=== PATIENT | female | born 1995 | race Hispanic/Latino ===

== ENCOUNTER 2019-06-08 13:35 | Outpatient (CLI) | payer MEDICAID ==
[2019-06-08] MEDS ORDERED: MORPHINE 4 MG/1 ML INJ IM ONE (14:23)
[2019-06-08 14:43] VITALS: BP 103/57
== END 2019-06-08 15:50 | disposition home or self-care (01) ==
LOC: TRG 13:35
PROVIDERS: ATTEND Obstetrics & Gynecology
DX: O62.9 Abnormality of forces of labor, unspecified (principal); O48.0 Post-term pregnancy; Z3A.40 40 weeks gestation of pregnancy
CPT/HCPCS: 59025; 96372; J2270

== ENCOUNTER 2019-06-08 18:07 | Inpatient (IN) | payer MEDICAID ==
[2019-06-08 19:32] LABS: Basophils % (Auto) 0.2 % (0.0-1.8); Hematocrit 36.9 % (30.3-42.9); Hemoglobin 12.4 gm/dl (10.1-14.3); Lymphocytes # (Auto) 1.3 K/mm3 (1.2-5.4); Lymphocytes % (Auto) 7.7 % (13.4-35.0); Mean Corpuscular HGB Conc 34 % (30-34); Mean Corpuscular Volume 89 fl (79-97); Monocytes % (Auto) 6.2 % (0.0-7.3); Platelet Count 250 K/mm3 (140-440); Red Blood Count 4.14 M/mm3 (3.65-5.03)
[2019-06-08] MEDS ORDERED: LIDOCAINE (2%) 20 MG/1 ML VIAL 20 ML MDV INFILTRATI ONE (19:35)
[2019-06-08] MEDS ORDERED: ONDANSETRON 4 MG/2 ML INJ IV PRN (19:35)
[2019-06-08] MEDS ORDERED: MINERAL OIL 30 ML ORAL LIQD PO PRN (19:35)
[2019-06-08] MEDS ORDERED: PROMETHAZINE 25 MG TAB PO PRN (19:35)
[2019-06-08] MEDS ORDERED: TERBUTALINE 1 MG/1 ML INJ IVP PRN (19:35)
[2019-06-08] MEDS ORDERED: TERBUTALINE 1 MG/1 ML INJ SUB-Q PRN (19:35)
[2019-06-08] MEDS ORDERED: fentaNYL 100 MCG/2 ML INJ IV PRN (19:35)
[2019-06-08] MEDS ORDERED: ePHEDrine SULFATE 50 MG/1 ML INJ IV PRN ×2 (19:35→21:56)
[2019-06-08] MEDS ORDERED: BUTORPHANOL 2 MG/1 ML INJ IV PRN (19:35)
--- NOTE | 2019-06-08 19:35 | History and Physical Report ---
History of Present Illness Date of examination: 06/08/19 Chief complaint: Labor History of present illness: Pt is a 24yo WF EDC 06/06/19; EGA 40 2/7 weeks presents to L&D complaining of RUC's q 3-4 mins. She received care at [facility] since at 26 weeks and course has been unremarkable. She has a history of HSV - no outbreaks in several months and currently on Valtrex for suppression. records are available and GBS is Negative. Past History Past Medical History: other (Right arm fracture) Past Surgical History: no surgical history HSE ADVISOR History: abnormal PAP smear, herpes (on Valtrex) Social history: no significant social history, single - Obstetrical History Expected Date of Delivery: 06/06/19 Actual Gestation: 40 Week(s) 2 Day(s) : 2 Medications and Allergies Allergies Allergy/AdvReac Type Severity Reaction Status Date / Time metronidazole [From Flagyl] Allergy Rash Verified 06/08/19 14:22 Review of Systems All systems: negative - Vital Signs Vital signs: Vital Signs Temp Resp 97.8 F 16 06/08/19 18:36 06/08/19 18:36 Temp Pulse Resp BP Pulse Ox 97.8 F 16 06/08/19 18:36 06/08/19 18:36 - Physical Exam Breasts: Positive: deferred Abdomen: Positive: normal appearance Genitourinary (Female): Positive: normal external genitalia Vagina: Positive: normal moisture Uterus: Positive: enlarged Extremities: Positive: normal - Obstetrical FHR: category 1 Uterine Contraction Monitor Mode: External Cervical Dilatation: 4 (per nurse) Cervical Effacement Percentage: 90 (per nurse) station: -2 Uterine Contraction Pattern: Regular Uterine Tone Measurement Phase: Contraction Uterine Contraction Intensity: Moderate Results Result Diagrams: 06/08/19 19:00 Abnormal lab results 06/08/19 Range/Units 19:00 WBC 16.7 H (4.5-11.0) K/mm3 Lymph % (Auto) 7.7 L (13.4-35.0) % Carbon # 1.0 H (0.0-0.8) K/mm3 Seg Neutrophils % 85.9 H (40.0-70.0) % Seg Neutrophils # 14.3 H (1.8-7.7) K/mm3 All other labs normal. Assessment and Plan - Patient Problems (1) 40 weeks gestation of Onset Date: 06/08/19 Current Visit: Yes Status: Acute Plan to address problem: A: IUP @ 40 2/7 weeks in labor P: Admit to L&D for expectant vaginal delivery
[2019-06-08] MEDS ORDERED: OXYTOCIN 20 UNIT/1000ML DRIP 20 UNITS/1,000 ML BAG IV SCH (20:00)
[2019-06-08] MEDS ORDERED: OXYTOCIN DRIP 30 UNITS/500 ML BAG IV SCH ×2 (20:00)
[2019-06-08] MEDS: LACTATED RINGERS 1,000 ML IV SCH ×2 (20:07→22:10)
[2019-06-08] MEDS ORDERED: NALOXONE 2 MG/2 ML INJ IV PRN (21:56)
--- NOTE | 2019-06-08 21:59 | Anesthesia Consultation ---
Anesthesia Consult and Med Hx Date of service: 06/08/19 - Airway Anesthetic Teeth Evaluation: Good ROM Head & Neck: Adequate Mental/Hyoid Distance: Adequate Mallampati Class: Class II Intubation Access Assessment: Probably Good - Pulmonary Exam CTA: Yes - Cardiac Exam Cardiac Exam: RRR - Pre-Operative Health Status ASA Pre-Surgery Classification: ASA3 Proposed Anesthetic Plan: Epidural - Pulmonary Hx Smoking: No Hx Asthma: No Hx Respiratory Symptoms: No SOB: No COPD: No Home Oxygen Therapy: No Hx Pneumonia: No Hx Sleep Apnea: No - Cardiovascular System Hx Hypertension: No Hx Coronary Artery Disease: No Hx Heart Attack/AMI: No Hx Angina: No Hx Percutaneous Transluminal Coronary Angioplasty (PTCA): No Hx Cardia Arrhythmia: No Hx Pacemaker: No Hx Internal Defibrillator: No Hx Valvular Heart Disease: No Hx Heart Murmur: No Hx Peripheral Vascular Disease: No - Central Nervous System Hx Neuromuscular Disorder: No Hx Seizures: No CVA: No Hx Back Pain: No Hx Psychiatric Problems: No - Gastrointestinal Hx Ulcer: No Hx Gastroesophageal Reflux Disease: No - Endocrine Hx Renal Disease: No Hx End Stage Renal Disease: No Hx Cirrhosis: No Hx Liver Disease: No Hx Insulin Dependent Diabetes: No Hx Non-Insulin Dependent Diabetes: No Hx Hypothyroidism: No Hx Hyperthyroidism: No - Hematic Hx Anemia: No Hx Sickle Cell Disease: No - Other Systems Hx Alcohol Use: No Hx Substance Use: No Hx Cancer: No Hx Obesity: Yes
[2019-06-08] MEDS ORDERED: fentaNYL-BUPIV 2 MCG/ML-0.125% 200 MCG/100 ML BAG EPIDURAL SCH (22:00)
[2019-06-08] MEDS ORDERED: BUPIVACAINE/PF (0.25%) 2.5 MG/ML 10 ML VIAL INFILTRATI ONE (22:41)
[2019-06-09] MEDS: LACTATED RINGERS 1,000 ML IV SCH (01:19)
--- NOTE | 2019-06-09 07:51 | Procedure Note ---
OB Delivery Note - Delivery Date of Delivery: 06/09/19 Surgeon: DEANGELO ELLER Estimated blood loss: 300cc - Vaginal Delivery presentation: vertex Delivery position: OA Intrapartum events: PROM->1hr before delivery Delivery induction: none Delivery augmentation: rupture of membranes, pitocin Delivery monitor: external FHT, external uterine Route of delivery: Delivery placenta: spontaneous Delivery cord: 3 umbilical vessels Episiotomy: midline Delivery laceration: 2nd degree (perineal) Delivery repair: vicryl Anesthesia: epidural Delivery comments: delivered OA and placed on Mom's chest for [id number] bonding and delayed cord clamping, cut by Dad - Infant A at 1 minute: 8 at 5 minutes: 9 Infant Gender: Female (4044gms)
[2019-06-09] MEDS ORDERED: diphenhydrAMINE 25 MG CAP PO PRN (09:00)
[2019-06-09] MEDS ORDERED: BENZOCAINE/MENTHOL 20/0.5% TOP SPRAY 56 GM TP PRN (09:00)
[2019-06-09] MEDS ORDERED: ACETAMINOPHEN 325 MG TAB PO PRN (09:00)
[2019-06-09] MEDS ORDERED: ONDANSETRON 4 MG/2 ML INJ IV PRN (09:00)
[2019-06-09] MEDS ORDERED: PROMETHAZINE 25 MG RECT SUPP PR PRN (09:00)
[2019-06-09] MEDS ORDERED: HYDROcodone/ACETAMINOPHEN 5-325 MG TAB PO PRN (09:00)
[2019-06-09] MEDS ORDERED: OXYTOCIN 20 UNIT/1000ML DRIP 20 UNITS/1,000 ML BAG IV SCH (09:00)
[2019-06-09] MEDS ORDERED: LANOLIN/ZINC/DIMETHICONE (LANSINOH) 7 GM TP PRN (09:00)
[2019-06-09] MEDS ORDERED: PROMETHAZINE 25 MG TAB PO PRN (09:00)
[2019-06-09] MEDS ORDERED: BISACODYL 10 MG RECT SUPP PR PRN (10:00)
[2019-06-09] MEDS: IBUPROFEN 600 MG TAB PO SCH ×2 (12:28→20:56)
[2019-06-09] MEDS: WITCH HAZEL/ GLYCERIN PAD TP PRN (12:31)
[2019-06-09 19:38] LABS: Hematocrit 32.8 % (30.3-42.9); Hemoglobin 11.1 gm/dl (10.1-14.3)
[2019-06-09] MEDS: FERROUS SULFATE 325 MG TAB PO SCH (21:47)
[2019-06-09] MEDS: DOCUSATE SODIUM 100 MG CAP PO SCH (21:47)
[2019-06-09] MEDS: SENNOSIDES/DOCUSATE SODIUM 8.6/50 MG TAB PO SCH (22:00)
[2019-06-09] MEDS ORDERED: MAGNESIUM HYDROXIDE (MOM) ORAL LIQD UDC PO PRN (22:00)
[2019-06-10] MEDS: IBUPROFEN 600 MG TAB PO SCH ×4 (01:32→17:40)
[2019-06-10] MEDS: WITCH HAZEL/ GLYCERIN PAD TP PRN (05:46)
[2019-06-10] MEDS ORDERED: TETANUS,DIPH,PERTUSS(ACELL) VACCINE 0.5 ML SYRINGE IM ONE (06:00)
[2019-06-10] MEDS: FERROUS SULFATE 325 MG TAB PO SCH ×2 (09:27→22:31)
[2019-06-10] MEDS: DOCUSATE SODIUM 100 MG CAP PO SCH ×2 (09:28→22:31)
[2019-06-10] MEDS: PRENATAL VIT27-FE FUMARATE-FOLIC ACID VIT TAB PO SCH (09:28)
[2019-06-10] MEDS ORDERED: MEASLES, MUMPS & RUBELLA 12,500 UNIT/0.5 ML VACCINE SUB-Q ONE (11:00)
--- NOTE | 2019-06-10 13:30 | Post Anesthesia Evaluation ---
- Post Anesthesia Evaluation Patient Participated: Yes Airway Patent: Yes Stable Respiratory Function: Yes Nausea/Vomiting: No Temp > 96.8F: Yes Pain Manageable: Yes Adequeate Hydration: Yes Anesthesia Complications: No Block Receding Appropriately: Yes Patient on Ventilator: No
--- NOTE | 2019-06-10 15:10 | Progress Note ---
Assessment and Plan A: day 1 S/P . P: Continue current management. Anticipate discharge tomorrow if patient continues to do well. Subjective - Subjective Date of service: 06/10/19 Principal diagnosis: day 1 S/P Interval history: day 1 S/P spontaneous vaginal delivery. Doing well. Patient reports small amount of lochia. Voiding without difficulty, ambulating well, tolerating a regular diet without nausea or vomiting. Patient denies headache, cough, shortness of breath, leg pain, abdominal pain, or heavy vaginal bleeding. Patient reports: appetite normal, voiding normally, pain well controlled, flatus, ambulating normally, no dizzy ambulation, no nauseated : doing well, bottle feeding Objective - Vital Signs Latest vital signs: Vital Signs Temp Pulse Resp BP 06/10/19 08:35 98.8 F 84 18 109/57 06/10/19 01:32 18 06/10/19 00:00 98.7 F 77 18 110/63 06/09/19 20:56 18 06/09/19 20:00 98.7 F 77 18 114/78 06/09/19 16:20 98.2 F 87 18 101/54 Intake and Output 06/09/19 06/10/19 06/10/19 23:59 07:59 15:59 Intake Total 420 320 Output Total 400 Balance 20 320 Intake: Oral 120 320 Intake, Free Water 300 Output: Urine 400 Void 400 Other: Total, Intake Amount 120 320 Total, Output Amount 400 # Voids Void 1 1 1 - Exam Abdomen: Present: normal appearance, soft. Absent: distention, tenderness, guarding, rigidity Uterus: Present: normal, firm, fundal height below umbilicus. Absent: bogginess, tenderness Extremities: Present: normal. Absent: tenderness, edema
[2019-06-10] MEDS: SENNOSIDES/DOCUSATE SODIUM 8.6/50 MG TAB PO SCH (22:29)
[2019-06-11] MEDS: IBUPROFEN 600 MG TAB PO SCH ×3 (00:01→14:11)
[2019-06-11 08:50] VITALS: BP 104/58
[2019-06-11] MEDS: PRENATAL VIT27-FE FUMARATE-FOLIC ACID VIT TAB PO SCH (09:29)
[2019-06-11] MEDS: DOCUSATE SODIUM 100 MG CAP PO SCH (09:29)
[2019-06-11] MEDS: FERROUS SULFATE 325 MG TAB PO SCH (09:29)
--- NOTE | 2019-06-11 11:28 | Progress Note ---
Assessment and Plan A: day 2 S/P spontaneous vaginal delivery. P: Discharge patient home today. Discussed with patient discharge instructions and warning signs in detail. Advised patient to continue taking her vitamins at home. Advised patient to rest at home, avoid intercourse, avoid lifting and heavy housework, and follow up with her primary OB in 6 weeks for exam. Depo Provera 150 mg IM ordered. Advised patient re: possible side effects and warning signs of Depo Provera. Patient voiced understanding of all instructions. Subjective - Subjective Date of service: 06/11/19 Principal diagnosis: day 2 S/P Interval history: day 2 S/P spontaneous vaginal delivery. Doing well. Patient reports small amount of lochia. Voiding without difficulty, ambulating well, tolerating a regular diet without nausea or vomiting. Patient denies headache, cough, shortness of breath, chest pain, dizziness, leg pain, abdominal pain, or heavy vaginal bleeding. Patient desires discharge home today. Patient wants to use Depo Provera for contraception, and she wants her first injection prior to hospital discharge today. Patient reports: appetite normal, voiding normally, pain well controlled, flatus, ambulating normally, no dizzy ambulation, no nauseated [place]: doing well, bottle feeding Objective - Vital Signs Latest vital signs: Vital Signs Temp Pulse Resp BP Pulse Ox 06/11/19 07:28 97.8 F 86 14 104/58 96 06/11/19 05:32 18 06/11/19 01:20 97.2 F L 86 18 109/74 97 06/11/19 00:01 18 06/10/19 22:31 18 06/10/19 17:15 98.2 F 92 H 20 116/67 Intake and Output 06/10/19 06/11/19 06/11/19 23:59 07:59 15:59 Intake Total 120 480 Balance 120 480 Intake: Oral 120 Intake, Free Water 480 Other: Total, Intake Amount 120 # Voids Void 1 2 - Exam Cardiovascular: Present: Regular rate, Normal S1, Normal S2, No murmurs Lungs: Present: Clear to auscultation Abdomen: Present: normal appearance, soft, normal bowel sounds. Absent: distention, tenderness, guarding, rigidity Uterus: Present: normal, firm, fundal height below umbilicus. Absent: bogginess, tenderness Extremities: Present: normal. Absent: tenderness, edema
--- NOTE | 2019-06-11 11:31 | Discharge Summary ---
Providers - Providers Date of Admission: 06/08/19 19:36 Date of discharge: 06/11/19 Attending physician: DEANGELO ELLER None Primary care physician: DEANGELO ELLER Hospitalization Reason for admission: active labor Delivery: Episiotomy: none Laceration: 2nd degree Other procedures: none complications: none Discharge diagnosis: IUP at term delivered baby: female Pertinent studies: Labs Hospital course: Normal hospital course. Condition at discharge: Good Disposition: DC-01 TO HOME OR SELFCARE - Discharge Diagnoses (1) Term delivered Status: Acute Plan - Provider Discharge Summary Activity: routine, no sex for 6 weeks, no heavy lifting 4 weeks, no strenuous exercise Diet: routine Instructions: routine Additional instructions: Continue taking your vitamins at home. Call your doctor immediately for: * Fever > 100.5 * Heavy vaginal bleeding ( >1 pad per hour) * Severe persistent headache * Shortness of breath * Reddened, hot, painful area to leg or breast - Follow up plan Follow up: DEANGELO ELLER MD [Primary Care Provider] - 6 Weeks
[2019-06-11] MEDS ORDERED: medroxyPROGESTERone ACETATE 150 MG/ML SYRINGE IM ONE (12:00)
== END 2019-06-11 14:58 | disposition home or self-care (01) | DRG 775 ==
LOC: TRG 18:07 → LD 18:08 → TRG 18:16 → LD 19:28 → TRG 19:35 → LD 19:36 → OB 06-09 11:06
PROVIDERS: ADMIT Obstetrics & Gynecology; ATTEND Obstetrics & Gynecology
PROC: 10E0XZZ Delivery of Products of Conception, External Approach (ICD-10-PCS; principal; 2019-06-09)
PROC: 0KQM0ZZ Repair Perineum Muscle, Open Approach (ICD-10-PCS; 2019-06-09)
PROC: 3E0R3BZ Introduction of Anesthetic Agent into Spinal Canal, Percutaneous Approach (ICD-10-PCS; 2019-06-09)
PROC: 00HU33Z Insertion of Infusion Device into Spinal Canal, Percutaneous Approach (ICD-10-PCS; 2019-06-09)
PROC: 0W8NXZZ Division of Female Perineum, External Approach (ICD-10-PCS; 2019-06-09)
PROC: 3E0234Z Introduction of Serum, Toxoid and Vaccine into Muscle, Percutaneous Approach (ICD-10-PCS; 2019-06-10)
DX: O42.92 Full-term premature rupture of membranes, unspecified as to length of time between rupture and onset of labor (principal); O70.1 Second degree perineal laceration during delivery; Z3A.40 40 weeks gestation of pregnancy; Z37.0 Single live birth; Z88.8 Allergy status to other drugs, medicaments and biological substances; Z23 Encounter for immunization
CPT/HCPCS: 36415; 85014; 85018; 85025; 86850; 86900; 86901; 90471; 90715; 96360; 96361; 96365; G0378; A6250; J1050; J2590; J3010; J7120

== ENCOUNTER 2020-06-01 16:51 | Emergency (ER) | payer SELFPAY ==
[2020-06-01 18:00] LABS: Basophils # (Auto) 0.1 K/mm3 (0.0-0.1); Basophils % (Auto) 0.7 % (0.0-1.8); Eosinophils % (Auto) 0.3 % (0.0-4.3); Hematocrit 39.8 % (30.3-42.9); Hemoglobin 13.8 gm/dl (10.1-14.3); Lymphocytes # (Auto) 2.2 K/mm3 (1.2-5.4); Lymphocytes % (Auto) 21.2 % (13.4-35.0); Mean Corpuscular HGB Conc 35 % (30-34); Mean Corpuscular Volume 87 fl (79-97); Monocytes # (Auto) 0.9 K/mm3 (0.0-0.8); Monocytes % (Auto) 8.7 % (0.0-7.3); Platelet Count 280 K/mm3 (140-440); Red Blood Count 4.58 M/mm3 (3.65-5.03); Red Cell Distribution Width 13.2 % (13.2-15.2)
[2020-06-01 18:17] LABS: Alanine Aminotransferase 34 units/L (7-56); Albumin 4.9 g/dL (3.9-5); Blood Urea Nitrogen 10 mg/dL (7-17); Calcium 9.7 mg/dL (8.4-10.2); Hemolysis Index 4
[2020-06-01 18:18] LABS: BUN/Creatinine Ratio 20
--- NOTE | 2020-06-01 18:21 | XRay Report ---
CHEST 2 VIEWS INDICATION / CLINICAL INFORMATION: CP. COMPARISON: None available. FINDINGS: SUPPORT DEVICES: None. HEART / MEDIASTINUM: No significant abnormality. LUNGS / PLEURA: No significant pulmonary or pleural abnormality. No pneumothorax. ADDITIONAL FINDINGS: No significant additional findings. IMPRESSION: No significant abnormality Signer Name: Rashad Rouse MD FACR Signed: 06/01/2020 6:17 PM Workstation Name: [id number]
--- NOTE | 2020-06-01 22:29 | Emergency Department Report ---
ED Chest Pain HPI - General Chief Complaint: Chest Pain Stated Complaint: CP/MEDICATION REACTION Time Seen by Provider: 06/01/20 22:15 Source: patient Mode of arrival: Ambulatory Limitations: No Limitations - History of Present Illness Initial Comments: This is a 25-year-old female presents to the emergency department with a complaint of some chest pain, anxiety, depression, and a jittery feeling, since using multiple substances last night. Patient says that she drank about a bottle of wine throughout the evening. At 11 PM the patient took an Adderall, that was not prescribed to her. And the patient says that throughout the evening she used cocaine multiple times in unknown amounts. She did all of this on top of her normal psychiatric medications which includes Wellbutrin and Lexapro. She has a psychiatric history of depression and anxiety. She denies any past medical history. She began having some left lateral chest pains, towards her back. She denies any shortness of breath, fever, nausea, vomiting or diaphoresis. However the patient says that she has felt very anxious and jittery. Patient also says that she is feeling depressed because she relapsed in her alcohol use and drank heavily 3 different times over the past week. She denies any hallucinations, suicidal or homicidal ideations. Patient has used cocaine 1 time previously but she says it was multiple years ago. She does have a psychiatrist and primary care physician for outpatient follow-up. She has not taken anything for symptoms prior to presentation this evening. No known aggravating or alleviating factors. Currently her pain is about a 2 out of 10, but her main complaint is the jittery feeling or feeling anxious. No recent travel or sick contacts at home. She is a tobacco smoker. No significant family history of early cardiac disease or events. - Related Data Allergies Allergy/AdvReac Type Severity Reaction Status Date / Time metronidazole [From Flagyl] Allergy Rash Verified 06/08/19 14:22 Heart Score - HEART Score History: Slightly suspicious EKG: Normal Age: < 45 Risk factors: 1-2 risk factors Troponin: < normal limit HEART Score: 1 - Critical Actions Critical Actions: 0-3 pts:0.9-1.7%risk of adverse cardiac event.Candidate for discharge ED Review of Systems ROS: Stated complaint: CP/MEDICATION REACTION Other details as noted in HPI Comment: All other systems reviewed and negative Constitutional: denies: chills, fever Eyes: denies: eye pain, vision change ENT: denies: ear pain, throat pain Respiratory: denies: cough, shortness of breath Cardiovascular: chest pain. denies: edema Gastrointestinal: denies: abdominal pain, vomiting Genitourinary: denies: dysuria, discharge Musculoskeletal: denies: joint swelling, arthralgia Skin: denies: rash, lesions Neurological: denies: headache, weakness Psychiatric: anxiety, depression. denies: suicidal thoughts ED Past Medical Hx - Past Medical History Previous Medical History?: No Hx Hypertension: No Hx Heart Attack/AMI: No Hx Congestive Heart Failure: No Hx Diabetes: No Hx Deep Vein Thrombosis: No Hx Liver Disease: No Hx Renal Disease: No Hx Sickle Cell Disease: No Hx Seizures: No Hx Asthma: No Hx COPD: No Hx HIV: No - Surgical History Past Surgical History?: No Hx Pacemaker: No Hx Internal Defibrillator: No ED Physical Exam - General Limitations: No Limitations - Other Other exam information: GENERAL: The patient is well-developed well-nourished. HENT: Normocephalic. Atraumatic. Patient has moist mucous membranes. EYES: Extraocular motions are intact. NECK: Supple. Trachea is midline. CHEST/LUNGS: Clear to auscultation. There is no respiratory distress noted. HEART/CARDIOVASCULAR: Regular. There is no tachycardia. There is no murmur. ABDOMEN: Abdomen is soft, nontender. Patient has normal bowel sounds. There is no abdominal distention. SKIN: Skin is warm and dry. NEURO: The patient is awake, alert, and oriented. The patient is cooperative. The patient has no focal neurologic deficits. Normal speech. MUSCULOSKELETAL: There is no tenderness or deformity. There is no limitation range of motion. ED Course Vital Signs 06/01/20 06/01/20 06/01/20 17:21 22:44 23:05 Temperature 98.2 F 98.3 F 97.9 F Pulse Rate 99 H 78 93 H Respiratory 20 14 18 Rate Blood Pressure 166/109 135/83 146/95 [Right] O2 Sat by Pulse 97 99 100 Oximetry DONNA score - Donna Score Age > 65: (0) No Aspirin use within the Past 7 Days: (0) No 3 or more CAD Risk Factors: (0) No 2 or more Angina events in past 24 hrs: (1) Yes Known CAD with more than 50% Stenosis: (0) No Elevated Cardiac Markers: (0) No ST Deviation Greater than 0.5mm: (0) No DONNA Score: 1 ED Medical Decision Making - Lab Data Result diagrams: 06/01/20 17:43 06/01/20 17:43 - EKG Data -: EKG Interpreted by Me EKG shows normal: sinus rhythm, axis, intervals, QRS complexes, ST-T waves Rate: normal - EKG Data When compared to previous EKG there are: previous EKG unavailable Interpretation: normal EKG - Radiology Data Radiology results: image reviewed interpreted by me: Chest x-ray does not show any acute process. There are no pleural effusions, obvious pneumonia and there is no pneumothorax. No significant cardiomegaly. - Medical Decision Making This patient presents to the emergency department with complaint of some chest pain, and a jittery feeling, since last night. The patient had polysubstance abuse including alcohol, cocaine, Adderall, and her home psychiatric medications. At the time of my examination the patient does not appear in any respiratory or acute distress. Heart and lung sounds are normal to auscultation. An EKG was performed that did not show any morphology consistent with ST elevation [place] or any dysrhythmia or signs of ischemia. Chest x-ray does not show any pneumonia, pleural effusions, pneumothorax, focal consolidation, or any other acute process. Patient's labs have been unremarkable including CBC, metabolic panel and a negative troponin. Her vital signs have been reassuring throughout her ED course including being afebrile and no significant t achycardia. Patient is low on the heart and DONNA score. She is low on the Wells score criteria and negative on the pulmonary embolism rule out criteria. The patient will be discharged home, but her contact information has been sent over to the [facility]. Someone from their office should be contacting her shortly for close outpatient follow-up and just in case the patient has also been given a referral for one of their cardiologists to make her own appointment if she has not contacted within the next few days. We discussed avoiding any further illicit substance, any further alcohol abuse, and mixing alcohol with her psychiatric medications. The patient will return to the emergency department with any worsening of her symptoms or with any acute distress. Critical Care Time: No Critical care attestation.: If time is entered above; I have spent that time in minutes in the direct care of this critically ill patient, excluding procedure time. ED Disposition Clinical Impression: Polysubstance abuse, Elevated blood pressure reading, Anxiety Chest pain Qualifiers: Chest pain type: unspecified Qualified Code(s): R07.9 - Chest pain, unspecified Disposition: DC-01 TO HOME OR SELFCARE Is pt being admited?: No Condition: Stable Instructions: Chest Pain (ED), How to Stop Smoking (ED), Polysubstance Abuse (ED), Anxiety (ED) Additional Instructions: Please follow-up with your primary care physician in the next 2 days. Please follow-up with your psychiatrist. Take your medications as prescribed. Please avoid any further Adderall, cocaine, or illicit drug use. Please avoid any further alcohol use/abuse and please do not mix alcohol with your psychiatric medications. I have sent your contact information over to [facility], and someone from their office should be contacting you shortly for close outpatient follow-up. Just in case, I have also given you a referral for Dr. Tong, who is one of the cardiologists from that group. Return to the emergency department with any worsening of your symptoms, new or concerning symptoms not addressed during this current emergency department visit, or with any acute distress. Referrals: PRIMARY CARE, [Primary Care Provider] - 2-3 Days PRINCESS TONG MD [Staff Physician] - 2-3 Days Psychiatrist, Your [Other] - 2-3 Days Time of Disposition: 22:34
[2020-06-01 23:16] VITALS: BP 146/95
== END 2020-06-01 23:05 | disposition home or self-care (01) ==
LOC: ED 16:51
DX: R07.89 Other chest pain (principal); F41.9 Anxiety disorder, unspecified; R03.0 Elevated blood-pressure reading, without diagnosis of hypertension; Z88.1 Allergy status to other antibiotic agents
CPT/HCPCS: 36415; 71046; 80053; 84484; 84703; 85025; 93005

== ENCOUNTER 2021-01-30 12:08 | Emergency (ER) | payer SELFPAY ==
[2021-01-30 12:42] VITALS: BP 134/68
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
== END 2021-01-30 15:07 | disposition home or self-care (01) ==
LOC: ED 12:08
DX: M54.2 Cervicalgia (principal); M54.5 Low back pain; F17.200 Nicotine dependence, unspecified, uncomplicated; F12.90 Cannabis use, unspecified, uncomplicated; Z79.899 Other long term (current) drug therapy; Z88.8 Allergy status to other drugs, medicaments and biological substances; V49.49XA Driver injured in collision with other motor vehicles in traffic accident, initial encounter; Y92.410 Unspecified street and highway as the place of occurrence of the external cause; Y93.89 Activity, other specified; Y99.8 Other external cause status
CPT/HCPCS: 99282